=== PATIENT | male | born 1955 | race Caucasian/White ===

== ENCOUNTER 2018-01-03 18:47 | Emergency (ER) | payer OTHER ==
[~2018-01-03] VITALS: Ht 200.7 cm; Wt 158.8 kg
[~2018-01-03 18:47] MED LIST: VICODIN 5-5001 EACH PO; ZOFRAN4 MG PO
[2018-01-03] MEDS ORDERED: HYDROCODONE-AP1 EAC6 PO (20:43)
[2018-01-03] MEDS ORDERED: PREDNISONE 10 M10 MG PO (20:43)
[2018-01-03 21:05] VITALS: BP 104/76
== END 2018-01-03 21:06 | disposition home or self-care (01) ==
LOC: ER 18:47
DX: G56.92 Unspecified mononeuropathy of left upper limb (principal); J45.909 Unspecified asthma, uncomplicated; Z88.8 Allergy status to other drugs, medicaments and biological substances; Z91.041 Radiographic dye allergy status